=== PATIENT | male | born 1975 | race Two or more races ===

== ENCOUNTER 2021-01-01 13:37 | Outpatient (REF) | payer OTHER, SELFPAY | END 2021-01-01 13:38 | disposition home or self-care (01) | LOC: HO.LAB 13:37 | PROVIDERS: Visit Provider Internal Medicine | DX: Z20.822 Contact with and (suspected) exposure to COVID-19 (principal) | CPT/HCPCS: 36415; C9803; U0003; U0005 ==

== ENCOUNTER 2021-05-13 19:30 | Emergency (ER) | payer OTHER, SELFPAY ==
[2021-05-13 19:49] VITALS: BP 104/69; PULSE 84; RESP 18; TEMP 36; O2SAT 97; BMI 26.9
[2021-05-13 20:36] VITALS: BP 107/71; PULSE 74; RESP 16; TEMP 37.1; O2SAT 99
[2021-05-13 21:00] LABS: COVID-19 Test Negative (Negative); IDNOW Serial# 9DD0AD1C
--- NOTE | 2021-05-13 21:02 | ED.URI ---
HPI - URI/Sore Throat General Chief Complaint: Upper Respiratory Symptoms Stated Complaint: flu like Source: patient Mode of arrival: ambulatory Limitations: no limitations History of Present Illness HPI Narrative: 45-year-old male presents with upper respiratory symptoms consistent with COVID-19. His just tested positive. He was requesting testing. MD elicited complaint: fever, cough, sore throat and nasal congestion Onset (ago): day(s) Consistency: constant Severity: moderate Description of mucous: clear and watery Able to tolerate fluids by mouth: Yes Relieving factors: nothing Context: sick contacts Associated symptoms: fever, chills, myalgias, rhinorrhea, nasal congestion, sore throat, cough, abdominal pain, nausea and diarrhea Treatments prior to arrival: acetaminophen and ibuprofen Related Data Allergies Allergy/AdvReac Type Severity Reaction Status Date / Time No Known Allergies Allergy Unverified 06/29/20 17:09 [No Known Allergies*] Review of Systems Review of Systems: Constitutional: positive Fever, positive Chills, positive fatigue, positive Malaise ENT/Mouth: positive sore throat, positive runny nose Eyes: No Discharge Cardiovascular: No Chest Pain, No SOB Respiratory: No Cough, No Sputum, No Wheezing, No Smoke Exposure, No Dyspnea Gastrointestinal: Positive Nausea, No Vomiting, positive Diarrhea Genitourinary: no irregular bleeding, No Dysuria, No Urinary Frequency, No Hematuria, No Urinary Incontinence, No Urgency, No Flank Pain, Musculoskeletal: positive Myalgia Skin: No rash Neuro: No Headache Yes all other systems are reviewed and are negative PMFSH Past Medical History Attestation statement: The following information was validated with the patient. Source: old records reviewed Medical History No acute medical problems Surgical History No history of previous surgery Social History Social History (Reviewed 05/14/21 @ :28 by Shae Berg NP) Advance Directives: No Advance Directives Information Provided: No Physical Exam Vital Signs: Vital Signs: Last Vital Signs Temp 98.7 F 05/13/21 20:36 Pulse 74 05/13/21 20:36 Resp 16 05/13/21 20:36 BP 107/71 05/13/21 20:36 Pulse Ox 99 05/13/21 20:36 Body Mass Index 26.9 Appearance: Alert. Oriented X3. Mild distress. Eyes: Pupils equal, round and reactive to light. Eyes reddened ENT: Pharynx normal. Moist mucous membranes Neck: Normal inspection. Neck supple. CVS: Normal heart rate and rhythm. Pulses normal. Respiratory: No respiratory distress. Breath sounds normal. Abdomen: Soft and nontender. Skin: Skin warm and dry. Normal skin color. Normal skin turgor. Extremities: No lower extremity edema. Gait well balanced well coordinated. Neuro: No motor deficit. No sensory deficit. Cranial nerves 2-12 intact. No focal neural deficits. Course Course Course Narrative: 45-year-old male presents with upper respiratory symptoms consistent with COVID-19 with positive COVID-19 contact, his . Will test for COVID-19. Test was negative however I suggested that he treat himself as if he was positive as this could possibly be a false negative as he is symptomatic with very close family contact. Patient verbalized understanding of and agrees to plan of care discharge home. Patient also agrees with this plan. MDM - URI/Sore Throat Differential Diagnosis Differential diagnosis: Likely upper respiratory infection, sinusitis, viral infection, bronchitis, influenza and pharyngitis Medical Records Attestation: I reviewed the patient's medical records. Lab Data Attestation: I reviewed the patient's lab results. Labs: Lab Results 05/13/21 05/13/21 Range/Units 20:40 21:19 Coronavirus (PCR) NEGATIVE (Negative) COVID-19 ([facility]) Negative (Negative) COVID-19 Clin Com See Note Influenza Type A (PCR) NEGATIVE (Negative) Influenza Type B (PCR) NEGATIVE (Negative) RSV RNA Qual (PCR) NEGATIVE (Negative) Discharge Plan Discharge Clinical Impression: Upper respiratory infection Patient Disposition: Home, Self-Care Instructions: Upper Respiratory Infection (ED), COVID-19 (Coronavirus Disease 2019) (ED) Additional Instructions: You were evaluated for symptoms consistent with COVID-19. Please maintain social isolation for positive COVID-19 results. You were evaluated for symptoms consistent with COVID-19 and or COVID-19 positive exposure. Please maintain social isolation per State and Federal guidelines. Is your responsibility to maintain these guidelines. Use Tylenol and Motrin as needed for fever control and pain management. If symptoms persist or you become short of breath please return to the emergency department immediately. Thank you for choosing this emergency department for evaluation. Please follow-up with primary care physician as needed. Return to the emergency department for any new, concerning, or worsening symptoms. Stand Alone Forms: Work/School Release Interventions: ED Discharge Assessment Last Done: 05/13/21 22:51 Discharge Date/Time: 05/13/21 22:54
[2021-05-13 22:15] LABS: Influenza A PCR NEGATIVE (Negative); Influenza B PCR NEGATIVE (Negative); Resp Syncy Virus RNA Qual PCR NEGATIVE (Negative); SARS COV2 PCR INHOUSE NEGATIVE (Negative)
== END 2021-05-13 22:54 | disposition home or self-care (01) ==
PROVIDERS: Nurse Practitioner Family; Emergency Provider Internal Medicine; PCP Internal Medicine
DX: J06.9 Acute upper respiratory infection, unspecified (principal); R05 Cough; R50.9 Fever, unspecified; Z20.822 Contact with and (suspected) exposure to COVID-19
CPT/HCPCS: 0241U; 36415; 87635; 99283

== ENCOUNTER 2021-05-16 11:20 | Emergency (ER) | payer OTHER, SELFPAY ==
--- NOTE | ~2021-05-16 | XR_ITS ---
EXAMINATION: XR CHEST CLINICAL INFORMATION: Fever, cough COMPARISON: Chest radiographs 01/07/2017 TECHNIQUE: Portable upright AP view of the chest was obtained. FINDINGS: The lungs are clear. There is no airspace consolidation or groundglass opacity. There is no visible effusion. The heart is normal in size. The vascularity is normal. The hilar and mediastinal contours are normal. No acute bony abnormality. Shrapnel overlying right paratracheal region stable. XR/XR chest 1V IMPRESSION: Unremarkable examination.
[2021-05-16 11:42] VITALS: BP 122/68; PULSE 106; RESP 18; TEMP 36.9; O2SAT 98; BMI 27.0
--- NOTE | 2021-05-16 12:06 | ED.GENADULT ---
HPI - General Adult General Chief complaint: Upper Respiratory Symptoms Stated complaint: flu like Time Seen by Provider: 05/16/21 12:05 History of Present Illness HPI narrative: This is a 45-year-old male who woke up with fever and chills and rhinorrhea. The patient had had some diarrhea yesterday. He notes that his partner has been sick recently and recently had tested positive for COVID 2 days ago but the patient had not. The patient at that time was feeling okay but now feels very ill. Has had a cough and feels a little short of breath. Denies any nausea vomiting or abdominal pain. Related Data Allergies Allergy/AdvReac Type Severity Reaction Status Date / Time No Known Allergies Allergy Unverified 06/29/20 17:09 [No Known Allergies*] Review of Systems Review of Systems: Yes all other systems are reviewed and are negative Constitutional: Constitutional: Reports as per HPI, Reports chills, Reports fever(s) and Reports headache(s) Eyes: Eyes: Reports as per HPI and Reports no additional eye complaints ENT: Reports system reviewed and no additional complaints, except as documented, Reports as per HPI, Reports headache(s), Reports nasal congestion, Reports nasal discharge and Denies sore throat Cardiovascular: Cardiovascular: Reports as per HPI, Denies chest pain and Reports dyspnea Respiratory: Respiratory: Reports as per HPI, Reports cough and Reports dyspnea Gastrointestinal: Gastrointestinal: Reports as per HPI, Denies abdominal pain, Reports diarrhea and Denies vomiting Genitourinary: Genitourinary: Reports as per HPI, Denies hematuria, Denies dysuria and Denies urinary frequency Musculoskeletal: Musculoskeletal: Reports no additional musculoskeletal complaints and Denies numbness Integumentary/Breasts: Skin/Breast: Reports as per HPI and Denies rash Neurologic: Reports as per HPI, Reports headache(s), Denies focal weakness and Denies numbness Psychiatric: Psychiatric: Reports no additional psychiatric complaints and Reports as per HPI Endocrine: Endocrine: Reports no additional endocrine complaints and Reports as per HPI Hematologic/Lymphatic: Hematologic/Lymphatic: Reports no additional hematologic/lymphatic complaints, Reports as per HPI and Reports other (No peripheral edema) [facility] Past Medical History Medical History No acute medical problems Surgical History No history of previous surgery Social History Social History Alcohol intake: never Patient Tobacco Use Status: Never used Tobacco Use of substances other than those prescribed or required for medical reasons: No Advance Directives: No Advance Directives Information Provided: No Physical Exam Vital Signs: Vital Signs: Last Vital Signs Temp 99.9 F 05/16/21 12:56 Pulse 97 05/16/21 12:56 Resp 18 05/16/21 12:56 BP 119/70 05/16/21 12:56 Pulse Ox 98 05/16/21 12:57 Body Mass Index 27.0 Medical Decision Making MDM Narrative Medical decision making narrative: Patient livesat home with his partner only, no other household members. His partner is sick with COVID, diagnosed recently and now the patient has symptoms and has tested positive. Patient's pulse oximetry is normal. He had some cough and respiratory symptoms but his chest x-ray is negative. Patient needs treatment with antipyretics. He has no other significant past medical history, does not qualify for antibiotic treatment. Patient needs to self quarantine at home for the next 14 days, with his partner. Patient is without comorbidities, is not obese, does not qualify for antibiotic treatment. Lab Data Labs: Lab Results 05/16/21 Range/Units 12:21 COVID-19 ([facility]ERIN) Positive A (Negative) COVID-19 Clin Com See Note Discharge Plan Discharge Clinical Impression: COVID-19 Patient Disposition: Home, Self-Care Instructions: COVID-19 (Coronavirus Disease 2019) (ED) Additional Instructions: Return for any new or worsened symptoms such as shortness of breath. Consider purchasing a pulse oximetry device to monitor your oxygen level. Drink plenty of fluids. Use acetaminophen and/or ibuprofen for pain. He can use acetaminophen 650 mg every 4-6 hours for fever or aches, and ibuprofen 600 mg every 6 hours. Quarantine at home for 14 days, and isolate herself from any household members who are not sick. Stand Alone Forms: Work/School Release Interventions: ED Discharge Assessment Last Done: 05/16/21 13:15 Discharge Date/Time: 05/16/21 13:23
--- NOTE | 2021-05-16 12:49 | PC.NURSE ---
PATIENT REFUSED TYLENOL AND IS REQUESTING IBUPROFEN
[2021-05-16] MEDS: Ibuprofen 600 MG TABLET PO (12:52)
--- NOTE | 2021-05-16 12:53 | PC.NURSE ---
There is no computer on wheels to scan the patient/pt ? covid, unable to enter another room to scan pt when dressed in PPE.
[2021-05-16 12:56] VITALS: BP 119/70; PULSE 97; RESP 18; TEMP 37.7; O2SAT 98
[2021-05-16 12:57] VITALS: O2SAT 98
--- NOTE | 2021-05-16 12:58 | PC.NURSE ---
patient a&ox3, pt medicated for headache, covid swab performed, pt given blanket for comfort, vss, will continue to monitor.
[2021-05-16 13:00] LABS: COVID-19 Test Positive (Negative)
== END 2021-05-16 13:23 | disposition home or self-care (01) ==
PROVIDERS: Emergency Provider Emergency Medicine; PCP Internal Medicine
DX: U07.1 COVID-19 (principal); R50.9 Fever, unspecified
CPT/HCPCS: 36415; 71045; 87635; 99283; 99284

== ENCOUNTER 2021-06-05 23:16 | Emergency (ER) | payer OTHER, SELFPAY ==
[2021-06-05 23:24] VITALS: BP 102/71; BP 110/67; PULSE 84; RESP 16; RESP 18; TEMP 36.3; TEMP 36.8; O2SAT 96; O2SAT 97; BMI 25.8; BMI 27.1
[2021-06-06 00:09] LABS: COVID-19 Test Negative (Negative); IDNOW Serial# 9DD0AD1C
--- NOTE | 2021-06-06 00:26 | ED.URI ---
HPI - URI/Sore Throat General Chief Complaint: Upper Respiratory Symptoms Stated Complaint: dizziness, headache Time Seen by Provider: 06/06/21 00:25 Source: patient Mode of arrival: ambulatory Limitations: no limitations History of Present Illness HPI Narrative: 45 y/o male with history of COVID-19 on 05/16/21 who presents to the ER with ongoing fatigue and not feeling himself after returning to work yesterday. 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 He has no further respiratory symptoms just ongoing fatigue, some body aches, headaches and dizziness which have been persistent since he diagnosis. No fevers, chest pain, chills, N/V/D. MD elicited complaint: other (fatigue, body aches) Onset (ago): week(s) Consistency: intermittent Severity: moderate Able to tolerate fluids by mouth: Yes Exacerbating factors: exertion Relieving factors: rest Associated symptoms: denies other symptoms Treatments prior to arrival: none Related Data Allergies Allergy/AdvReac Type Severity Reaction Status Date / Time No Known Allergies Allergy Unverified 06/29/20 17:09 [No Known Allergies*] Review of Systems Constitutional: Constitutional: Denies chills, Denies fever(s), Reports headache(s), Reports malaise and Denies night sweats Eyes: Eyes: Reports no additional eye complaints ENT: Reports Normal hearing present, Denies vertigo, Reports dizziness, Reports headache(s), Denies neck pain and Denies sore throat Cardiovascular: Cardiovascular: Denies chest pain, Denies syncope and Denies dyspnea Respiratory: Respiratory: Denies cough and Denies dyspnea Gastrointestinal: Gastrointestinal: Denies abdominal pain, Denies diarrhea, Denies nausea and Denies vomiting Musculoskeletal: Musculoskeletal: Reports myalgias, Denies neck pain and Denies numbness Neurologic: Reports Normal hearing present, Denies confusion, Denies vertigo, Reports dizziness, Denies syncope, Reports headache(s) and Denies numbness Psychiatric: Psychiatric: Denies confusion PMFSH Past Medical History Attestation statement: The following information was validated with the patient. Medical History No acute medical problems Surgical History No history of previous surgery Social History Social History Alcohol intake: never Patient Tobacco Use Status: Never used Tobacco Advance Directives: No Advance Directives Information Provided: No Physical Exam Vital Signs: Vital Signs: Last Vital Signs Temp 98.2 F 06/05/21 23:24 Pulse 84 06/05/21 23:24 Resp 16 06/05/21 23:24 BP 110/67 06/05/21 23:24 Pulse Ox 96 06/05/21 23:24 Body Mass Index 27.1 Appearance: Alert. Oriented X3. No acute distress. Eyes: Pupils equal, round and reactive to light. ENT: Pharynx normal. Neck: Normal inspection. Neck supple. CVS: Normal heart rate and rhythm. Pulses normal. Respiratory: No respiratory distress. Breath sounds normal. Abdomen: Soft and nontender. +BS x4 Skin: Skin warm and dry. Normal skin color. Normal skin turgor. No rashes. Extremities: No lower extremity edema. Neuro: Oriented X 3. No motor deficit. No sensory deficit. Const: General: No confusion Orientation/consciousness: No confusion Neuro: General: No confusion Cranial nerves: Yes Normal hearing present Course Course Course Narrative: 45 y/o male presenting with ongoing fatigue and body aches 3 weeks after COVID diagnosis. His VS are stable. His exam is benign. His COVID test is now negative. He is stable for discharge home with likely chronic, ongoing effects of COVID. Recommended follow up with PCP. MDM - URI/Sore Throat Lab Data Labs: Lab Results 06/05/21 Range/Units 23:45 COVID-19 ([facility]ATHERIN) Negative (Negative) COVID-19 Clin Com See Note Critical Care Time Critical Care Time Critical Care Time: No Discharge Plan Discharge Clinical Impression: Persistent fatigue after COVID-19 Patient Disposition: Home, Self-Care Instructions: Fatigue (ED) Additional Instructions: Your COVID test was negative today. Recommend rest. Stay hydrated. Take motrin and tylenol as needed. Follow up with your doctor. Stand Alone Forms: Work/School Release
== END 2021-06-06 00:35 | disposition home or self-care (01) ==
PROVIDERS: Emergency Provider Internal Medicine; PCP Pediatrics
DX: R53.83 Other fatigue (principal); M79.10 Myalgia, unspecified site; R51.9 Headache, unspecified; Z86.16 Personal history of COVID-19
CPT/HCPCS: 36415; 87635; 99283

== ENCOUNTER 2021-08-16 21:45 | Emergency (ER) | payer OTHER, SELFPAY ==
[2021-08-16 22:18] VITALS: BP 104/65; PULSE 80; RESP 18; TEMP 36.8; O2SAT 95; BMI 26.3
[2021-08-16 22:44] LABS: COVID-19 Test Negative (Negative)
--- NOTE | 2021-08-16 23:16 | ED.GENADULT ---
HPI - General Adult General Chief complaint: General Medical Stated complaint: back pain Time Seen by Provider: 08/16/21 23:16 Source: patient Mode of arrival: ambulatory Limitations: no limitations History of Present Illness HPI narrative: Patient comes emergency room complaining of 3 days of bilateral back pain. Patient denies chest pain or shortness of breath. Patient denies any injury. Patient states that whenever he moves his back hurts, denies cervical/thoracic/lumbar pain that. Patient took 1 dose of ibuprofen prior to arrival, did not help. Related Data Previous Rx's Medication Instructions Recorded cyclobenzaprine 5 mg tablet 5 mg PO TID PRN #10 tab 08/16/21 ibuprofen 600 mg tablet 600 mg PO Q6H PRN #14 tab 08/16/21 Allergies Allergy/AdvReac Type Severity Reaction Status Date / Time No Known Allergies Allergy Verified 08/16/21 23:05 [No Known Allergies*] Review of Systems Review of Systems: Constitutional : No Weight loss, No Fever, No Chills, No Night Sweats, No Fatigue, No Malaise ENT/Mouth : No Hearing loss, No Ear Pain, No Nasal Congestion, No Sinus Pain, No Hoarseness, No sore throat, No Rhinorrhea, No Swallowing Difficulty Eyes: No Eye Pain, No Swelling, No Redness, No Foreign Body, No Discharge, No Vision Changes Cardiovascular : No Chest Pain, No SOB, No Dyspnea on Exertion, No Orthopnea, No Edema, No Palpitations Respiratory : No Cough, No Sputum, No Wheezing, No Smoke Exposure, No Dyspnea Gastrointestinal : No Nausea, No Vomiting, No Diarrhea, No Constipation, No abdominal Pain, No Hematochezia, No Melena Genitourinary : no irregular bleeding, No Dysuria, No Urinary Frequency, No Hematuria, No Urinary Incontinence, No Urgency, No Flank Pain, No Urinary Flow Changes, No Hesitancy Musculoskeletal : Complaining of upper bilateral back pain worse with movement, No Myalgias, No Joint Swelling Skin : No Skin Lesions, No rash Neuro : No Weakness, No Numbness, No Paresthesias, No Loss of Consciousness, No Dizziness, No Headache Psych : No Anxiety/Panic, No Depression, No SI/HI/AH/VH, No Social Issues, Heme/Lymph: No Bruising, No Bleeding,No Lymphadenopathy Endocrine : No Polyuria, No Polydipsia, No Temperature Intolerance PMFSH Past Medical History Medical History No acute medical problems Surgical History No history of previous surgery Social History Social History Alcohol intake: never Patient Tobacco Use Status: Never used Tobacco Advance Directives: No Advance Directives Information Provided: No Physical Exam Vital Signs: Vital Signs: Last Vital Signs Temp 98.3 F 08/16/21 22:18 Pulse 80 08/16/21 22:18 Resp 18 08/16/21 22:18 BP 104/65 08/16/21 22:18 Pulse Ox 95 08/16/21 22:18 Body Mass Index 26.3 Const: Other: Appearance: Alert. Oriented X3. No acute distress. Eyes: Pupils equal, round and reactive to light. ENT: Pharynx normal. Neck: Normal inspection. Neck supple. No lymph nodes noted. No crepitus CVS: Normal heart rate and rhythm. Pulses normal. Normal S1 and S2 Respiratory: No respiratory distress. Breath sounds normal. No Wheezing. No rales Abdomen: Soft and nontender. No rigidity. No distention. Back: Bilateral back pain to superficial palpation throughout the entire upper back Skin: Skin warm and dry. Normal skin color. Normal skin turgor. Extremities: No lower extremity edema. No lower extremity edema. No Lacerations. No Rash Neuro: Oriented X 3. No motor deficit. No sensory deficit. Moving all extermities. No slurred speech. Course Course Course Narrative: Patient has no upper respiratory symptoms. Patient's back pain likely secondary to musculoskeletal. Patient was given 1 dose of IM Toradol and cyclobenzaprine p.o. Medical Decision Making Lab Data Labs: Lab Results 08/16/21 Range/Units 22:24 COVID-19 (KATHERIN) Negative (Negative) COVID-19 Clin Com See Note Discharge Plan Discharge Clinical Impression: Musculoskeletal back pain Patient Disposition: Home, Self-Care Instructions: Back Pain (ED) Additional Instructions: Please follow-up with your primary care physician tomorrow. If you have any worsening or new symptoms, please return to the emergency room or call 911 Prescriptions: New cyclobenzaprine 5 mg tablet 5 mg PO TID PRN (Reason: muscle spasm) Qty: 10 RF: 0 ibuprofen 600 mg tablet 600 mg PO Q6H PRN (Reason: pain) Qty: 14 RF: 0
[2021-08-17] VITALS: PULSE 74; O2SAT 98
[2021-08-17] MEDS: Cyclobenzaprine HCl 5 MG TABLET PO (00:10)
== END 2021-08-17 00:36 | disposition home or self-care (01) ==
PROVIDERS: Emergency Provider Emergency Medicine; PCP Internal Medicine
DX: M54.9 Dorsalgia, unspecified (principal); Z20.822 Contact with and (suspected) exposure to COVID-19
CPT/HCPCS: 36415; 87635; 96372; 99284

== ENCOUNTER 2021-10-28 02:35 | Emergency (ER) | payer OTHER, SELFPAY ==
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
[2021-10-28 02:37] VITALS: BP 109/78; PULSE 70; RESP 16; TEMP 36.6; O2SAT 96; BMI 26.1
--- NOTE | 2021-10-28 02:46 | ECG_ITS ---
Test Reason : dizziness Blood Pressure : / mmHG Vent. Rate : 071 BPM Atrial Rate : 071 BPM P-R Int : 158 ms QRS Dur : 076 ms QT Int : 364 ms P-R-T Axes : 061 035 045 degrees QTc Int : 395 ms Normal sinus rhythm Normal ECG No previous ECGs available Referred By: Generic ED Physician Electronically Signed By:JANETH WEST
[2021-10-28 02:59] LABS: MANUAL DIFF FLAG NO
[2021-10-28 03:05] LABS: Basophils Percent Auto 0.5 % (0-2); Eosinophils Absolute Auto 0.3 X10*3/uL (0.0-0.4); Eosinophils Percent Auto 5.3 % (0-4); Hemoglobin 13.3 g/dl (14.0-18.0); Imm Gran Abs Auto 0.01 X10*3/uL (0.00-0.03); Imm Gran Pct Auto 0.2 % (0.0-0.4); Lymphocytes Absolute Auto 2.6 X10*3/uL (1.2-4.9); Lymphocytes Percent Auto 42.1 % (20-40); Mean Corpuscular HGB Conc 33.3 g/dl (31.0-36.0); Mean Corpuscular Hemoglobin 30.8 pg (27.0-33.0); Mean Corpuscular Volume 92.6 fL (80.0-98.0); Mean Platelet Volume 10.1 fL (9.4-12.4); Monocytes Absolute Auto 0.8 X10*3/uL (0.1-1.2); Monocytes Percent Auto 12.3 % (2-11); Neutrophils Absolute Auto 2.4 x10*3/uL (2.0-8.3); Neutrophils Percent Auto 39.6 % (45-73); Platelet Count 195 X10*3/uL (160-400); Red Blood Count 4.32 X10*6/uL (4.60-5.80); Red Cell Distribution Width 13.2 % (11.0-16.0); White Blood Count 6.1 X10*3/uL (4.8-10.8)
[2021-10-28 03:18] LABS: Anion Gap 14 (12-20); Blood Urea Nitrogen 16 mg/dL (9-16); Calcium 8.9 mg/dL (8.4-10.2); Carbon Dioxide 23 mmol/L (22-29); Chloride 107 mmol/L (96-108); Creatinine Clr Calc Pharmacy 113.4; Estimated Glomerular Filt Rate > 60; Glucose Random 95 mg/dL (60-115); Potassium 4.2 mmol/L (3.3-5.1); Sodium 140 mmol/L (135-145)
[2021-10-28 03:20] LABS: COVID-19 Test Negative (Negative)
[2021-10-28 03:23] LABS: Troponin-I High Sensitivity < 3.5 ng/L (<3.5-35.0)
[2021-10-28 04:56] VITALS: BP 91/55; PULSE 71; RESP 20; O2SAT 96
--- NOTE | 2021-10-28 06:02 | PC.NURSE ---
at bedside for primary eval.
--- NOTE | 2021-10-28 06:22 | ED_ITS ---
HPI - Dizziness General Chief Complaint: Dizziness Stated Complaint: weakness, arm, headache, dizzy Time Seen by Provider: 10/28/21 05:40 Source: patient Mode of arrival: ambulatory Limitations: no limitations History of Present Illness HPI Narrative: 45-year-old male who presents emergency department for evaluation of dizziness, left arm and left leg pain. 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 He was just starting work when he started to feel dizzy. He states that the dizziness came on suddenly. Describes the dizziness as a room spinning sensation. He then developed pain in his left shoulder with numbness of his left arm and left leg. He states that this was very brief but did seem to come on and off. He states that he felt off balance. He did have a headache located in the frontal aspect of his head which she describes as a moderate, constant, throbbing sensation. The patient did take some Motrin with resolution of his headache. He states this is the 1st time he has had these types of symptoms. He denied being ill in any other way. He denied fever, chills, chest pain, shortness of breath, cough, myalgias, arthralgias, diarrhea. Related Data Previous Rx's Medication Instructions Recorded cyclobenzaprine 5 mg tablet 5 mg PO TID PRN #10 tab 08/16/21 ibuprofen 600 mg tablet 600 mg PO Q6H PRN #14 tab 08/16/21 meclizine 25 mg tablet (Dramamine 25 mg PO TID PRN #20 tab 10/28/21 Less Drowsy) Allergies Allergy/AdvReac Type Severity Reaction Status Date / Time No Known Allergies Allergy Verified 10/28/21 02:41 [No Known Allergies*] Review of Systems Review of Systems: Yes all other systems are reviewed and are negative [facility] Past Medical History [facility] Narrative: Past medical history: None. Past surgical history: None. Social history: The patient smokes half pack of cigarettes per day times 25 years. He drinks a six-pack of beer on the weekends. He states that he has used heroin and cocaine in the past but has not used in over a year. Medical History No acute medical problems Surgical History No history of previous surgery Social History Social History Alcohol intake: never Patient Tobacco Use Status: Never used Tobacco Advance Directives: No Physical Exam Vital Signs: Vital Signs: Last Vital Signs Temp 98 F 10/28/21 02:37 Pulse 71 10/28/21 04:56 Resp 20 10/28/21 04:56 BP 91/55 L 10/28/21 04:56 Pulse Ox 96 10/28/21 04:56 BMI result Body Mass Index 26.1 Const: General: cooperative and no acute distress Orientation/consciousnes s: oriented to person and oriented to place Limitations: no limitations HENMT: Head: Yes normal to inspection, Yes normocephalic and Yes atraumatic Ears: external ears normal General nose exam: Normal external nose present Face and sinus: Yes normal facial exam Mouth: Normal oral and palatal mucosa present Throat: Yes posterior oropharynx normal Eyes: General: appearance normal, both eyes and all related structures Pupils: Equal, round and reactive pupils present Neck: Neck: Yes normal visual inspection, Yes no lymphadenopathy, Yes trachea midline and Yes supple Chest: Chest palpation & inspection: normal inspection of the chest and normal palpation of entire chest wall Resp: Effort & Inspection: normal respiratory effort and able to speak in complete sentences Auscultation: clear to auscultation bilaterally Cardio: Rate: regular rate Rhythm: regular rhythm Heart sounds: S1 normal heart sound present, S2 normal heart sound present and no murmurs GI: Inspection: Yes normal to inspection Palpation (GI): Soft to palpation, nontender and no guarding Auscultation: normal bowel sounds : General: Yes no CVA tenderness Back/Spine/Pelvis: Back: no CVA tenderness Skin: General skin exam: no rashes or lesions noted Neuro: General: oriented to person and oriented to place Cranial nerves: Yes CN's II-XII intact bilaterally and Yes Equal, round and reactive pupils present Cognition (Neuro): normal cognition Motor exam (neuro): 5/5 motor strength present throughout Sensory Exam: other (Symmetric light touch) Coordination: [id number] test normal, [id number] test normal, tandem gait normal and Romberg test negative Extrem: General: Yes normal to inspection Psych: Appearance: grossly normal Speech and movement: Normal speech and movement present Affect: normal affect Attitude: cooperative Thought process: Normal thought process present Thought content: Normal thought co ntent present Course Course Course Narrative: 45-year-old male who presents emergency department for evaluation of sudden room spinning dizziness with associated headache, left arm and left leg pain and numbness. The patient did take some ibuprofen prior to coming to the emergency department with resolution of his headache. By the time I evaluated the patient he states that his dizziness had resolved in his arm and leg pain also resolved. Vital signs were normal. Physical examination was unremarkable with a normal neurologic exam. The patient's presentation is most likely consistent with benign positional vertigo and I did discuss this with him. Patient was started on meclizine. Was given a note not return to work until 10/30/2021. MDM - Dizziness Lab Data Result diagrams: 10/28/21 02:54 10/28/21 02:54 Labs: Lab Results 10/28/21 10/28/21 10/28/21 Range/Units 02:54 02:54 02:54 WBC 6.1 (4.8-10.8) X10*3/uL RBC 4.32 L (4.60-5.80) X10*6/uL Hgb 13.3 L (14.0-18.0) g/dl Hct 40.0 L (42.0-52.0) % MCV 92.6 (80.0-98.0) fL MCH 30.8 (27.0-33.0) pg MCHC 33.3 (31.0-36.0) g/dl RDW 13.2 (11.0-16.0) % Plt Count 195 (160-400) X10*3/uL MPV 10.1 (9.4-12.4) fL Immature Gran % (Auto) 0.2 (0.0-0.4) % Neut % (Auto) 39.6 L (45-73) % Lymph % (Auto) 42.1 H (20-40) % [place] % (Auto) 12.3 H (2-11) % Eos % (Auto) 5.3 H (0-4) % Baso % (Auto) 0.5 (0-2) % Lymph # (Auto) 2.6 (1.2-4.9) X10*3/uL [place] # (Auto) 0.8 (0.1-1.2) X10*3/uL Eos # (Auto) 0.3 (0.0-0.4) X10*3/uL Baso # (Auto) 0.0 (0.0-0.2) X10*3/uL Abs Immat Gran (auto) 0.01 (0.00-0.03) X10*3/uL Absolute Neuts (auto) 2.4 (2.0-8.3) x10*3/uL Absolute Nucleated RBC 0.000 (0.0-0.012) X10*3/uL Nucleated RBC % (auto) 0.0 (0.0-0.2) /100WBC Sodium 140 (135-145) mmol/L Potassium 4.2 (3.3-5.1) mmol/L Chloride 107 (96-108) mmol/L Carbon Dioxide 23 (22-29) mmol/L Anion Gap 14 (12-20) BUN 16 (9-16) mg/dL Creatinine 0.75 (0.5-1.4) mg/dL Estim Creat Clear Calc 113.4 Estimated GFR > 60 Random Glucose 95 (60-115) mg/dL Calcium 8.9 (8.4-10.2) mg/dL Troponin I High Sens < 3.5 (<3.5-35.0) ng/L COVID-19 (KATHERIN) (Negative) COVID-19 Clin Com 10/28/21 Range/Units 02:54 WBC (4.8-10.8) X10*3/uL RBC (4.60-5.80) X10*6/uL Hgb (14.0-18.0) g/dl Hct (42.0-52.0) % MCV (80.0-98.0) fL MCH (27.0-33.0) pg MCHC (31.0-36.0) g/dl RDW (11.0-16.0) % Plt Count (160-400) X10*3/uL MPV (9.4-12.4) fL Immature Gran % (Auto) (0.0-0.4) % Neut % (Auto) (45-73) % Lymph % (Auto) (20-40) % [place] % (Auto) (2-11) % Eos % (Auto) (0-4) % Baso % (Auto) (0-2) % Lymph # (Auto) (1.2-4.9) X10*3/uL [place] # (Auto) (0.1-1.2) X10*3/uL Eos # (Auto) (0.0-0.4) X10*3/uL Baso # (Auto) (0.0-0.2) X10*3/uL Abs Immat Gran (auto) (0.00-0.03) X10*3/uL Absolute Neuts (auto) (2.0-8.3) x10*3/uL Absolute Nucleated RBC (0.0-0.012) X10*3/uL Nucleated RBC % (auto) (0.0-0.2) /100WBC Sodium (135-145) mmol/L Potassium (3.3-5.1) mmol/L Chloride (96-108) mmol/L Carbon Dioxide (22-29) mmol/L Anion Gap (12-20) BUN (9-16) mg/dL Creatinine (0.5-1.4) mg/dL Estim Creat Clear Calc Estimated GFR Random Glucose (60-115) mg/dL Calcium (8.4-10.2) mg/dL Troponin I High Sens (<3.5-35.0) ng/L COVID-19 (KATHERIN) Negative (Negative) COVID-19 Clin Com See Note Discharge Plan Discharge Clinical Impression: Benign paroxysmal positional vertigo, Arm pain, left, Acute leg pain Patient Disposition: Home, Self-Care Instructions: Benign Paroxysmal Positional Vertigo (ED) Additional Instructions: Your blood work was unremarkable. Your EKG was normal. Your chest x-ray was normal. Your COVID-19 test was negative. Your dizziness is most consistent with positional vertigo. Take meclizine 25 mg pills, 1 pill 3 times a day for the next 3 days for dizziness then as needed for dizziness. This medication will make you sleepy. Do not drive or work while taking this medication. Follow-up with your doctor in 2 days. Please return to the emergency department if your symptoms get worse or if you develop any symptoms that are concerning to you. Please see work note. Prescriptions: New meclizine [Dramamine Less Drowsy] 25 mg tablet 25 mg PO TID PRN (Reason: dizziness) Qty: 20 RF: 0 No Action cyclobenzaprine 5 mg tablet 5 mg PO TID PRN (Reason: muscle spasm) Qty: 10 RF: 0 ibuprofen 600 mg tablet 600 mg PO Q6H PRN (Reason: pain) Qty: 14 RF: 0 Stand Alone Forms: Work/School Release
[2021-10-28 06:27] VITALS: BP 114/65; PULSE 64; RESP 16; TEMP 36.6; O2SAT 96
== END 2021-10-28 06:42 | disposition home or self-care (01) ==
PROVIDERS: Emergency Provider Emergency Medicine Emergency Medical Services; PCP Internal Medicine
DX: H81.13 Benign paroxysmal vertigo, bilateral (principal); M79.605 Pain in left leg; M79.602 Pain in left arm; R51.9 Headache, unspecified; R05.9 Cough, unspecified; Z20.822 Contact with and (suspected) exposure to COVID-19; Z79.899 Other long term (current) drug therapy
CPT/HCPCS: 36415; 71045; 80048; 84484; 85025; 87635; 93005; 99284

== ENCOUNTER 2022-12-13 10:01 | Outpatient (REF) | payer OTHER, SELFPAY ==
[2022-12-13 11:26] LABS: MANUAL DIFF FLAG NO
[2022-12-13 11:34] LABS: Basophils Percent Auto 0.5 % (0-2); Eosinophils Absolute Auto 0.2 X10*3/uL (0.0-0.4); Eosinophils Percent Auto 2.9 % (0-4); Hematocrit 40.7 % (42.0-52.0); Hemoglobin 13.5 g/dl (14.0-18.0); Imm Gran Abs Auto 0.01 X10*3/uL (0.00-0.03); Imm Gran Pct Auto 0.2 % (0.0-0.4); Lymphocytes Absolute Auto 1.4 X10*3/uL (1.2-4.9); Mean Corpuscular HGB Conc 33.2 g/dl (31.0-36.0); Mean Corpuscular Hemoglobin 30.3 pg (27.0-33.0); Mean Corpuscular Volume 91.5 fL (80.0-98.0); Mean Platelet Volume 10.4 fL (9.4-12.4); Monocytes Absolute Auto 0.6 X10*3/uL (0.1-1.2); Monocytes Percent Auto 9.3 % (2-11); Neutrophils Absolute Auto 3.8 x10*3/uL (2.0-8.3); Neutrophils Percent Auto 64.1 % (45-73); Platelet Count 231 X10*3/uL (160-400); Red Blood Count 4.45 X10*6/uL (4.60-5.80); Red Cell Distribution Width 12.8 % (11.0-16.0); White Blood Count 5.9 X10*3/uL (4.8-10.8)
[2022-12-13 12:42] LABS: Alanine Aminotransferase 12 U/L (0-40); Albumin Level 4.5 g/dL (3.5-5.0); Alkaline Phosphatase 69 U/L (39-117); Anion Gap 14 (12-20); Aspartate Amino Transferase 17 U/L (5-37); Bilirubin Total 0.6 mg/dL (0.0-1.0); Blood Urea Nitrogen 17 mg/dL (9-16); Calcium 9.1 mg/dL (8.4-10.2); Carbon Dioxide 27 mmol/L (22-29); Chloride 101 mmol/L (96-108); Estimated Glomerular Filt Rate > 60; Gamma Glutamyl Transpeptidase 22 U/L (11-51); Glucose Random 95 mg/dL (60-115); Potassium 4.5 mmol/L (3.3-5.1); Sodium 137 mmol/L (135-145); Total Protein 7.2 g/dL (6.5-8.0)
[2022-12-16 08:57] LABS: HBS Num1 102.51 mIU/mL (0-7.99); HBc Num1 2.26 S/CO (0.00-0.79); HBsAGNum1 0.35 S/CO (0.00-0.99); HIV AB/AG Nonreactive (Nonreactive); HIV Num 1 0.07 S/CO (0.00-0.99); Hepatitis A Antibody IgM 0.36 Index (0-0.79); Hepatitis B Surface Antigen Negative (Negative); ~HepC Num1 13.93 S/CO (0.00-0.79); ~Hepatitis A Antibody IgM Nonreactive (Nonreactive); ~Hepatitis B Surface Antibody REACTIVE (Nonreactive); ~Hepatitis C Antibody Reactive (Nonreactive)
[2022-12-16 11:24] LABS: HBc Num2 2.37 S/CO
[2022-12-16 11:25] LABS: HBc Num3 2.32 S/CO; Hepatitis B Core Antibody Reactive (Nonreactive)
== END 2022-12-13 10:02 | disposition home or self-care (01) ==
LOC: HO.HMGCLDS 10:01
PROVIDERS: PCP Internal Medicine; Visit Provider Registered Nurse
DX: Z11.4 Encounter for screening for human immunodeficiency virus [HIV] (principal); F11.20 Opioid dependence, uncomplicated
CPT/HCPCS: 36415; 80053; 82977; 85025; 86704; 86706; 86709; 86803; 87340; 87389

== ENCOUNTER 2023-01-24 16:34 | Emergency (ER) | payer OTHER, SELFPAY ==
[2023-01-24 17:03] VITALS: BP 138/100; PULSE 145; BMI 26.6
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
== END 2023-01-25 00:12 | disposition left against medical advice (07) ==
PROVIDERS: Emergency Provider Emergency Medicine
DX: F11.10 Opioid abuse, uncomplicated (principal); T40.1X1A Poisoning by heroin, accidental (unintentional), initial encounter; T40.5X1A Poisoning by cocaine, accidental (unintentional), initial encounter; Y92.9 Unspecified place or not applicable
CPT/HCPCS: 99282; 99283

== ENCOUNTER 2023-08-07 09:07 | Outpatient (AMB) | payer OTHER, SELFPAY ==
[2023-08-07 09:09] VITALS: BP 112/60; PULSE 90; TEMP 36.7; O2SAT 96; BMI 27.0
--- NOTE | 2023-08-07 09:09 | A.OFFVIS_ITS ---
Intake Vital Signs 08/07/23 09:09 Height 5 ft 5 in Weight 162 lb 8 oz BMI 27.0 BP 112/60 Blood Pressure Location Rt brachial Pulse 90 Pulse Source Pulse Oximeter Temp 98.1 F Temp Source Oral Pulse Oximetry (%) 96 Oxygen Delivery Method Room Air Intake Visit Reasons: [employer] LT Arm pain ( Intake Note: Pt presents to the office today for c/o left arm pain which started about a month ago. Pt states he was at the gym and was lifting weights when it started. Allergies No Known Allergies [No Known Allergies*] Allergy (Verified 08/07/23 09:11) HPI HPI Comments History of Present Illness Details 47-year-old male that presents for forea rm and biceps pain. Patient with feeding weights about a month doing curls started developing pain which is progressively getting worse.. Patient has pain w/ pronation and flexion of the arm [facility] Medical History No acute medical problems Surgical History No history of previous surgery Social History (Updated 08/07/23 @ 09:12 by Akosua Morin MA) Household Members: Spouse Housing: House Alcohol intake: never Patient Tobacco Use Status: Current everyday Tobacco user Cigarettes Per Day: 10 Use of substances other than those prescribed or required for medical reasons: No Review of Systems Musc Details: Lt arm pain Physical Exam Vital Signs: Last Vital Signs Temp 98.1 F 08/07/23 09:09 Pulse 90 08/07/23 09:09 BP 112/60 08/07/23 09:09 Pulse Ox 96 08/07/23 09:09 Oxygen Delivery Method Room Air 08/07/23 09:09 BMI result Body Mass Index 27.0 Const General: cooperative, healthy appearing, no acute distress and alert Orientation/consciousness: patient oriented x3 Limitations: no limitations HEENT Head: Yes normal to inspection Ears: hearing grossly normal bilaterally General nose exam: Normal external nose present Resp Effort & Inspection: normal respiratory effort and able to speak in complete sentences Cardio Rate: regular rate Skin General skin exam: no rashes or lesions noted Neuro General: patient oriented x3 Extrem Other: Left arm tenderness to palpation over the lateral epicondyle. Pain with pronation as well as flexion of the arm. General: Yes normal to inspection Assessment & Plan Assessment & Plan (1) Lateral epicondylitis of elbow: Code(s): M77.10 - Lateral epicondylitis, unspecified elbow Qualifiers: Laterality: left Qualified Code(s): M77.12 - Lateral epicondylitis, left elbow Plan: Signs and symptoms consistent with lateral epicondylitis. Recommend conservative management with meloxicam encounter bracing. If symptoms not improve would consider sending patient to orthopedics. Medications: New meloxicam 7.5 mg PO DAILY 30 tabs 0RF Coding Level of Care Code New Pt Level 4 (91265) Diagnoses Lateral epicondylitis of left elbow M77.12 Laterality: left
== END 2023-08-07 09:29 | disposition home or self-care (01) ==
PROVIDERS: Visit Provider Physician Assistant
DX: M77.12 Lateral epicondylitis, left elbow (principal)
CPT/HCPCS: 99204

== ENCOUNTER 2023-12-05 10:00 | Outpatient (RCR) | payer OTHER, SELFPAY | END 2023-12-05 10:55 | disposition home or self-care (01) | LOC: HO.PTCHIC 10:00 | PROVIDERS: Visit Provider Physician Assistant | DX: M54.2 Cervicalgia (principal) | CPT/HCPCS: 97110; 97140; 97161 ==